=== PATIENT | female | born 1950 | race Hispanic/Latino ===

== ENCOUNTER 2017-02-16 10:10 | Outpatient (CLI) | payer MEDICARE ==
--- NOTE | 2017-02-16 11:54 | Cat Scan Report ---
CT OF THE ABDOMEN AND PELVIS WITHOUT CONTRAST HISTORY: Calculus of kidney. TECHNIQUE: Helical CT without contrast. Sagittal and coronal reformatted images. FINDINGS: Both kidneys are normal size, contour and position. No obvious cyst or mass on noncontrast CT. A 2 mm calyceal stone is identified in the inferior right kidney. There are 3 calyceal stones in the left kidney. A 3 mm stone is identified at the inferior pole. A 6 mm stone is identified near the inferior pole. A 5 mm stone is identified near mid pole. There is no evidence for ureteral stones or hydronephrosis. The bladder is unremarkable. The liver, biliary system, pancreas, spleen, adrenal glands, aorta and bowel loops are within normal limits. Normal appendix. Hysterectomy changes are noted. The lung bases are clear. Normal heart size. No suspicious bony lesion. IMPRESSION: Bilateral nephrolithiasis as outlined above.
== END 2017-02-16 10:11 | disposition home or self-care (01) ==
LOC: CT 10:10
PROVIDERS: ATTEND Urology
DX: N20.0 Calculus of kidney (principal); Z90.710 Acquired absence of both cervix and uterus
CPT/HCPCS: 74176

== ENCOUNTER 2017-04-07 06:20 | Day surgery (SDC) | payer MEDICARE ==
[~2017-04-07 06:20] MED LIST: NACL 0.9% 1000 ML 1,000 ML IV SCH; PEPCID PO NR; VERSED IV NR
--- NOTE | 2017-04-07 07:02 | Anesthesia Day of Surgery ---
Anesthesia Day of Surgery - Day of Surgery Patient Examined: Yes Patient H&P Reviewed: Yes Patient is NPO: Yes
--- NOTE | 2017-04-07 07:05 | Anesthesia Consultation ---
Anesthesia Consult and Med Hx Date of service: 04/07/17 - Airway Anesthetic Teeth Evaluation: Good, Caps (left upper front/some missing) ROM Head & Neck: Inadequate (s/p ACDF with decreased ROM) Mental/Hyoid Distance: Adequate Mallampati Class: Class III Intubation Access Assessment: Possibly Difficult - Pulmonary Exam CTA: Yes (blbs clear) - Cardiac Exam Cardiac Exam: RRR - Pre-Operative Health Status ASA Pre-Surgery Classification: ASA3 Proposed Anesthetic Plan: General - Pulmonary Hx Smoking: No Hx Respiratory Symptoms: Yes (recent URI now OK/ no wheeze) Hx Sleep Apnea: Yes (DX SLEEP APNEA, NO CPAP USE) - Cardiovascular System Hx Hypertension: Yes (X 7 YRS) - Central Nervous System Hx Neuromuscular Disorder: Yes (s/p ACDF with decreased ROM) Hx Back Pain: Yes - Gastrointestinal Hx Gastroesophageal Reflux Disease: No - Endocrine Hx Hypothyroidism: Yes (ON MEDS) - Hematic Hx Anemia: Yes (NOT RECENT) - Other Systems Hx Obesity: Yes (bmi 42) - Additional Comments Anesthesia Medical History Comments: last N/V 04/03
[2017-04-07] MEDS ORDERED: DILAUDID IV PRN (07:06)
[2017-04-07] MEDS ORDERED: SUBLIMAZE IV PRN (07:06)
[2017-04-07] MEDS ORDERED: NACL BACTERIOSTATIC INFILTRATI ONE (07:08)
[2017-04-07] MEDS ORDERED: DIPRIVAN 10 MG/ML IV ONE (07:19)
[2017-04-07] MEDS ORDERED: XYLOCAINE MPF 2% ONE (07:19)
[2017-04-07] MEDS ORDERED: ZOFRAN IV PRN (08:00)
--- NOTE | 2017-04-07 08:07 | Post Operative Note ---
Pre-op diagnosis: renal stones Post-op diagnosis: same Findings: as above Procedure: eswl left Anesthesia: GETA Surgeon: LY ACMPA Estimated blood loss: none Pathology: none Condition: stable Disposition: PACU
--- NOTE | 2017-04-07 08:08 | Discharge Summary ---
Short Stay Discharge Plan Activity: other (no straining) Weight Bearing Status: Full Weight Bearing Diet: low fat, low cholesterol, low salt Special Instructions: other (inc fluids) Durable Medical Equipment Needed Upon Discharge: other Follow up with: TRAVIS CARLOS MD [Primary Care Provider] - 7 Days LY CAMPA MD [Staff Physician] - 14 Days
[2017-04-07] MEDS ORDERED: DECADRON ONE (08:14)
[2017-04-07] MEDS ORDERED: LASIX ONE (08:20)
[2017-04-07] MEDS ORDERED: ANCEF/STERILE WATER 2 GM/20 ML 2 GM/20 ML SYRINGE IV NR (09:00)
--- NOTE | 2017-04-07 09:13 | Operative Report ---
PREOPERATIVE DIAGNOSES: Renal stones and left flank pain. POSTOPERATIVE DIAGNOSES: Renal stones and left flank pain. PROCEDURE: In situ left lithotripsy. SURGEON: Henrry Benavides M.D. ANESTHESIA: General. FINDINGS: This is a woman who was moderately obese with recurrent nephrolithiasis. She has left flank pain. We have been watching this conservatively. As the pain has gotten worse, she wants to have this selectively treated. She has a 5-6 mm stone, left kidney and smaller stones in the right. DESCRIPTION OF PROCEDURE: The patient brought to the operating room and placed on the operating table. Following induction of anesthesia, the stone was localized in the left kidney. The lower pole stone was easily seen and the mid pole was little more difficult. Shocks were begun at 1 kV and increased to maximum of 5 kV. A renal pause was carried out. During the case, we gave her some contrast to better identify the collecting system, which helped us during the procedure. The patient tolerated the procedure well and brought to recovery in stable condition. JOB# [id number] ALFREDA/SD
--- NOTE | 2017-04-07 09:30 | Post Anesthesia Evaluation ---
- Post Anesthesia Evaluation Patient Participated: Yes Airway Patent: Yes Stable Respiratory Function: Yes Nausea/Vomiting: No Temp > 96.8F: Yes Pain Manageable: Yes Adequeate Hydration: Yes Anesthesia Complications: No Block Receding Appropriately: Not Applicable Patient on Ventilator: No
[2017-04-07 09:55] VITALS: BP 121/78
--- NOTE | 2017-04-07 15:40 | Admit Criteria Form ---
Admission Criteria Documentation: AMBULATORY SURGERY EXCEPTION CRITERIA Ambulatory Surgery Exception Criteria ( Place 'X' for any and all applicable criteria): Surgery or procedure performed on ambulatory basis may require inpatient stay for[A] ANY ONE of the following(1)(2)(3)(4)(5)(6)(7)(8)(9): [X] I. A preoperative situation, condition, or finding that warrants inpatient stay as indicated by ANY ONE of the following: [] a) Inpatient care needed because of severity of a disease or condition rather than the surgery (eg, severe cardiac or respiratory disease, severe infection) (15) (16 ) (17) (18) [] b) Emergent procedure (eg, angioplasty for acute ischemia)(19) [] c) Complex surgical approach or situation as indicated by ANY ONE of the following(3): [] i) Open approach needed instead of usual endoscopic, transcatheter, or other less invasive procedure [] ii) Difficult approach because of previous operation [] iii) Airway monitoring required after open neck procedures(20)(21) [] iv) Large mass requiring unusually extensive dissection [] v) Additional complicating feature requiring inpatient care (eg, drain management)(22(23): [X] d) Major surgery in a pt with high anesthetic risk as indicated by ANY ONE of the following (2)(3)(5)(7)(8): [X] i) ASA risk class III or higher (severe systemic disease impairing function) [D] [] ii) Advanced age (eg, older than 85 years)(14)(24) [] iii) Symptomatic heart failure(25) [] iv) Symptomatic asthma or COPD(8)(21) [] v) Morbid obesity with hemodynamic or respiratory problems(20)( 21)(26)(27) [] vi) Obstructive sleep apnea(20)(21) [] vii) Former premature infants who are younger than 60 weeks [] viii) High risk for severe postoperative abnormalities (eg, severe postoperative hypocalcemia after parathyroidectomy for severe hyperparathyroidism)(27)( 28) [] ix) Unstable angina(25) [] e) Drug-related risk requiring inpatient stay as indicated by ANY ONE of the following(5)(10)(14)(32)(33) [] i) Procedure requires discontinuing drugs or other therapy (eg , antiarrhythmic medication, antiseizure medication), which necessitates inpatient observation or treatment.(18)(31) [] ii) Major surgery and high risk drug use as indicated by ANY ONE of the following: [] 1) Active abuse of cocaine or similar drug [] 2) Monoamine oxidase inhibitor use [] 3) Other drug identified as posing risk [] f) Inadequate outpatient care situation as indicated by ANY ONE of the following(5)(10)(14)(32)(33) [] i) Patient lives remote from medical facility and procedure has urgent complication potential, and temporary nearby residence cannot be arranged [] ii) Patient will have postprocedure incapacitation and inadequate assistance at home, or alternative level of care cannot be arranged. [] iii) Patient will have long general anesthesia or procedure side effect resolution time, and competent person to stay with patient on first postoperative night at home or alternative level of care cannot be arranged. []iv) Other inadequate outpatient situation that cannot be handled by other means [] II. A perioperative event, condition, or finding that warrants inpatient stay as indicated by ANY ONE of the following (1)(2)(3): [] a) Inadequate physiologic recovery: cardiovascular, respiratory, or hemodynamic status not normal or near preoperative baseline(18) [] b) Hemodynamic instability [] c) Patient not alert with near normal or baseline mental status [] d) Temperature not normal or as expected and not appropriate for outpatient treatment of condition [] e) Ambulatory or appropriate activity level status not yet achieved post procedure [E](34)(35)(36) [] f) Operative site not appropriate (eg, unexpected or excessive drainage or bleeding) [] g) Postoperative effects not resolved or adequately managed (eg, significant pain or vomiting not appropriate for outpatient or next level of care)(10)(12) [] h) Complicating features requiring inpatient care as indicated by ANY ONE of the following(37): [] i) Severe complications of procedure (eg, bowel injury, airway compromise, vascular injury,severe hemorrhage) [] ii) Extensive (eg, dissection far beyond usual scope of procedure ) or prolonged (eg, 120 minutes beyond usual) surgery needed requiring inpatient postoperative care [] iii) Conversion to an open or complex procedure that requires inpatient care (eg, open vs laparoscopic cholecystectomy, abdominal vs vaginal hysterectomy)(38) [] iv) Comorbid condition or test result identified during or post procedure that requires inpatient care (7) [] v) Malignant hyperthermia(30) [] vi) Other complicating feature requiring inpatient care(22)(23) Inpatient stay may be needed until ALL of the following are present (1)(2)(3)(4) (5)(6)(10)(14)(33)(40): []a) Physiologic recovery: cardiovascular, respiratory, and hemodynamic status normal or near preoperative baseline []b) Hemodynamic stability []c) Patient alert, with near normal or baseline mental status []d) Temperature appropriate: patient afebrile or temperature appropriate for outpt treatment of condition []e) Activity level appropriate: ambulatory or appropriate activity level post procedure []f) Operative site appropriate as indicated by ALL of the following: []i) Site dry or with expected drainage []ii) Any blood noted is as expected for procedure. []g) Postoperative effects resolved or managed as indicated by ALL of the following: []i) Pain management appropriate for outpatient (or next level of) care(10) []ii) Minimal nausea and vomiting: if present, successfully treated with oral medication(12) []iii) Headache, dizziness, or drowsiness (if present) are mild. []h) Voiding status acceptable as indicated by ANY ONE of the following: []i) Voiding spontaneously []ii) No voiding but instructions given for follow-up in 6 to 8 hours []iii) Urinary catheter in place, and instructions given for follow-up []i) Complicating features requiring inpatient care manageable at a lower level of care(37) []j) Comorbid conditions manageable at a lower level of care(37) The original [employer] content created by [employer] has been revised. The portions of the content which have been revised are identified through the use of italic text or in bold, and [employer] [employer] has neither reviewed nor approved the modified material. All other unmodified content is copyright [employer]. Please see references footnoted in the original [employer] edition 2016 Admission Criteria Met: Yes
== END 2017-04-07 11:22 | disposition home or self-care (01) ==
LOC: OR 06:20
PROVIDERS: ATTEND Urology
DX: N20.0 Calculus of kidney (principal); I10 Essential (primary) hypertension; E03.9 Hypothyroidism, unspecified; G47.33 Obstructive sleep apnea (adult) (pediatric); D64.9 Anemia, unspecified; E66.9 Obesity, unspecified; Z68.41 Body mass index [BMI] 40.0-44.9, adult; Z79.899 Other long term (current) drug therapy
CPT/HCPCS: 50590; J0690; J1100; J1940; J2250; J2405; J2704; J3010; J7030; Q9967

== ENCOUNTER 2017-12-22 08:41 | Day surgery (SDC) | payer MEDICARE ==
[2017-12-22] MEDS ORDERED: NACL BACTERIOSTATIC INFILTRATI ONE (09:17)
[2017-12-22] MEDS ORDERED: DILAUDID IV PRN (09:52)
--- NOTE | 2017-12-22 09:52 | Anesthesia Day of Surgery ---
Anesthesia Day of Surgery - Day of Surgery Patient Examined: Yes Patient H&P Reviewed: Yes Patient is NPO: Yes
--- NOTE | 2017-12-22 09:52 | Anesthesia Consultation ---
Anesthesia Consult and Med Hx Date of service: 12/22/17 - Airway Anesthetic Teeth Evaluation: Crowns ROM Head & Neck: Inadequate Mental/Hyoid Distance: Adequate Mallampati Class: Class III Intubation Access Assessment: Possibly Difficult - Pulmonary Exam CTA: Yes - Cardiac Exam Cardiac Exam: RRR - Pre-Operative Health Status ASA Pre-Surgery Classification: ASA3 Proposed Anesthetic Plan: General - Pulmonary Hx Smoking: No Hx Respiratory Symptoms: Yes (recent URI now OK/ no wheeze) Hx Sleep Apnea: Yes (DX SLEEP APNEA , NO CPAP USE) - Cardiovascular System Hx Hypertension: Yes (X 7 YRS) - Central Nervous System Hx Neuromuscular Disorder: Yes (s/p ACDF with decreased ROM) Hx Back Pain: Yes - Gastrointestinal Hx Gastroesophageal Reflux Disease: No - Endocrine Hx Hypothyroidism: Yes (ON MEDS) - Hematic Hx Anemia: Yes (NOT RECENT) - Other Systems Hx Obesity: Yes (bmi 42) - Additional Comments Anesthesia Medical History Comments: Informed consent obtained
[2017-12-22] MEDS ORDERED: DIPRIVAN 10 MG/ML IV ONE ×2 (09:59→10:51)
[2017-12-22] MEDS ORDERED: ANCEF/STERILE WATER 2 GM/20 ML 2 GM/20 ML SYRINGE IV SCH (10:00)
[2017-12-22] MEDS ORDERED: PERCOCET 5/325 PO PRN (10:00)
[2017-12-22] MEDS ORDERED: PEPCID IV NR (10:00)
[2017-12-22] MEDS ORDERED: NACL 0.9% 1000 ML 1,000 ML IV SCH (10:00)
--- NOTE | 2017-12-22 11:08 | Post Operative Note ---
Date of procedure: 12/22/17 Pre-op diagnosis: left renal stone Post-op diagnosis: same Findings: as above Procedure: LESWL Anesthesia: GETSary Surgeon: LY CAMPA Estimated blood loss: none Pathology: none Condition: stable Disposition: PACU
--- NOTE | 2017-12-22 11:09 | Discharge Summary ---
Short Stay Discharge Plan Activity: other (no straining ) Weight Bearing Status: Full Weight Bearing Diet: low fat, low cholesterol, low salt Special Instructions: other (inc fluids ) Durable Medical Equipment Needed Upon Discharge: other Follow up with: TRAVIS CARLOS MD [Primary Care Provider] - 7 Days LY CAMPA MD [Staff Physician] - 14 Days
--- NOTE | 2017-12-22 11:21 | Operative Report ---
PREOPERATIVE DIAGNOSES: Left flank pain, 6 mm left renal stone. POSTOPERATIVE DIAGNOSES: Left flank pain, 6 mm left renal stone. PROCEDURE: Left in situ ESWL. SURGEON: Henrry Benavides MD ANESTHESIA: General. FINDINGS: This is a woman with intermittently severe left flank pain. She has a 6 mm stone. We did a CT, there was no obstruction. She came here today again with severe pain. She is obese and she now presents for treatment. DESCRIPTION OF PROCEDURE: The patient was brought to the operating room and placed on the operating table. Stone was very difficult to localize on the food counter attendant film, with fluoroscopic imaging. We therefore gave her contrast, which showed the ureter to be a very delicate, excellent peristalsis, no sign of obstruction and we saw the lower pole jessica with the stone. ____ Shocks were begun at 1 kV after she was put with the LMA. Increased the shocks after renal pause to 4 kV. The patient tolerated the procedure well. There were no sign of any type of obstruction. She tolerated the procedure well and brought to recovery in stable condition. Total of 2500 shocks were given. JOB# [id number] ALFREDA/SD
[2017-12-22] MEDS ORDERED: NEO SYNEPHRINE/NS Syringe(OR USE) IV ONE (11:30)
[2017-12-22] MEDS ORDERED: XYLOCAINE MPF 2% ONE (11:38)
[2017-12-22 12:43] VITALS: BP 132/76
--- NOTE | 2017-12-22 13:41 | Post Anesthesia Evaluation ---
- Post Anesthesia Evaluation Patient Participated: Yes Airway Patent: Yes Stable Respiratory Function: Yes Nausea/Vomiting: No Temp > 96.8F: Yes Pain Manageable: Yes Adequeate Hydration: Yes Anesthesia Complications: No
== END 2017-12-22 08:42 | disposition home or self-care (01) ==
LOC: OR 08:41
PROVIDERS: ATTEND Urology
DX: N20.0 Calculus of kidney (principal); I10 Essential (primary) hypertension; E03.9 Hypothyroidism, unspecified; E66.9 Obesity, unspecified; Z68.41 Body mass index [BMI] 40.0-44.9, adult; Z98.890 Other specified postprocedural states; Z98.86 Personal history of breast implant removal
CPT/HCPCS: 50590; J0690; J2704; J7030; Q9967; J2370

== ENCOUNTER 2018-02-13 10:08 | Outpatient (CLI) | payer MEDICARE ==
--- NOTE | 2018-02-13 12:58 | XRay Report ---
XRAY LEFT HIP THREE VIEWS: 02/13/18 10:08:00 CLINICAL: Left hip pain. FINDINGS: No fracture or dislocation. Minimal arthritis of the left hip. Heterotopic bone at the left inferior pubic ramus correlate with enthesophytes which are better imaged on a 02/16/17 CT. The pelvic bones are otherwise intact. Mild osteoarthritis of the right hip. Mild bilateral SI joint sclerosis. No erosions. 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
== END 2018-02-13 10:09 | disposition home or self-care (01) ==
LOC: SPVIMAG 10:08
PROVIDERS: ATTEND Physical Medicine & Rehabilitation
DX: M16.0 Bilateral primary osteoarthritis of hip (principal)

== ENCOUNTER → 2021-09-11 | Outpatient (CLI) | payer MEDICARE | END | disposition home or self-care (01) | LOC: SLR 11:00 | PROVIDERS: ATTEND Internal Medicine | DX: G47.30 Sleep apnea, unspecified (principal) | CPT/HCPCS: 95810 ==

== ENCOUNTER 2021-10-01 17:22 | Outpatient (CLI) | payer MEDICARE ==
[2021-10-01 18:00] LABS: Basophils % (Auto) 0.4 % (0.0-1.8); Eosinophils # (Auto) 0.2 K/mm3 (0.0-0.4); Eosinophils % (Auto) 4.2 % (0.0-4.3); Hematocrit 41.2 % (30.3-42.9); Hemoglobin 14.1 gm/dl (10.1-14.3); Lymphocytes # (Auto) 1.4 K/mm3 (1.2-5.4); Lymphocytes % (Auto) 25.5 % (13.4-35.0); Mean Corpuscular HGB Conc 34 % (30-34); Mean Corpuscular Volume 87 fl (79-97); Monocytes # (Auto) 0.4 K/mm3 (0.0-0.8); Monocytes % (Auto) 6.5 % (0.0-7.3); Platelet Count 226 K/mm3 (140-440); Red Blood Count 4.75 M/mm3 (3.65-5.03); Red Cell Distribution Width 13.3 % (13.2-15.2)
[2021-10-01 18:08] LABS: ABG Base Excess -0.4 mmol/L (-2.0-3.0); ABG HCO3 23.3 mmol/L (20.0-26.0); ABG Methemoglobin 0.4 % (0.0-1.5); ABG Oxygen Saturation 97.6 % (95.0-99.0); ABG PCO2 35.2 mm Hg; ABG PH 7.439 pH Units (7.350-7.450); ABG PO2 97.7 mm Hg (80.0-90.0)
[2021-10-01 18:09] LABS: Alanine Aminotransferase 29 units/L (7-56); Blood Urea Nitrogen 13 mg/dL (7-17); Calcium 9.5 mg/dL (8.4-10.2); Hemolysis Index 18
[2021-10-01 18:19] LABS: BUN/Creatinine Ratio 19
== END 2021-10-01 17:23 | disposition home or self-care (01) ==
LOC: LAB 17:22
PROVIDERS: ATTEND Internal Medicine
DX: G47.33 Obstructive sleep apnea (adult) (pediatric) (principal); G47.00 Insomnia, unspecified; J44.9 Chronic obstructive pulmonary disease, unspecified; K21.9 Gastro-esophageal reflux disease without esophagitis; I48.91 Unspecified atrial fibrillation; F90.9 Attention-deficit hyperactivity disorder, unspecified type; F32.A Depression, unspecified; I10 Essential (primary) hypertension; N08 Glomerular disorders in diseases classified elsewhere; Z85.3 Personal history of malignant neoplasm of breast
CPT/HCPCS: 36415; 36600; 80053; 82785; 82803; 84436; 84443; 85025